=== PATIENT | female | born 1965 | race Caucasian/White ===

== ENCOUNTER → 2017-05-24 | Outpatient (CLI) | payer OTHER ==
[~2017-05-24] MED LIST: GADOBUTROL 7.5 MMOL/7.5 ML VIAL IV ONE
--- NOTE | 2017-05-24 11:30 | KCIC ---
EXAM: MRI BRAIN WITH AND WITHOUT CONTRAST. HISTORY: Altered mental status, dizziness, nausea, history of breast cancer. TECHNIQUE: Magnetic resonance images of the brain were obtained before and after the intravenous administration of 7 mL Gadavist. COMPARISON: None. FINDINGS: There is a prominent developmental venous anomaly in the left frontal lobe. Another smaller developmental venous anomaly is seen in the left thalamus. There is no associated flow void, cavernoma or hemorrhage. There are no suspicious enhancing lesions. There is no diffusion restriction. A few foci of T2/FLAIR hyperintensity within the subcortical and deep white matter are nonspecific but most likely represent mild chronic microangiopathic white matter change. The ventricles are normal in size and position. The paranasal sinuses are clear. The orbits are unremarkable. The temporal bones are unremarkable. The calvarium demonstrates no suspicious lesions. IMPRESSION: 1. Developmental venous anomalies within the left frontal lobe and left thalamus are usually incidental findings of no clinical significance. No evidence of associated hemorrhage or cavernoma. 2. Mild chronic microangiopathic white matter change. Electronically signed by: Radames Smith MD (05/24/2017 11:27 AM)
== END | disposition home or self-care (01) ==
LOC: KCIC MRI 09:55
PROVIDERS: ATTEND Family Medicine
DX: R41.0 Disorientation, unspecified (principal); R42 Dizziness and giddiness
CPT/HCPCS: 70553; A9585